=== PATIENT | male | born 1990 | race Caucasian/White ===

== ENCOUNTER → 2019-01-14 | Outpatient (CLI) | payer OTHER ==
[2019-01-14 19:54] LABS: BASO % 0.4 % (0.0-1.0); HEMATOCRIT 45.2 % (42.0-52.0); HEMOGLOBIN 15.9 g/dl (13.5-17.5); LYMPH # 1.2 10^3/uL (1.5-6.5); LYMPH % 23.9 % (24.0-44.0); MEAN CORPUSCULAR HEMOGLOBIN 31.5 pg (27.0-33.0); MEAN CORPUSCULAR HGB CONC 35.2 g/dl (32.0-36.5); MEAN CORPUSCULAR VOLUME 89.7 fl (80.0-96.0); MONO # 0.6 10^3/uL (0.0-0.8); NEUTROPHILS # 3.1 10^3/uL (1.8-7.7); NEUTROPHILS % 62.3 % (36.0-66.0); RED BLOOD COUNT 5.04 10^6/uL (4.30-6.10); WHITE BLOOD COUNT 4.9 10^3/uL (4.0-10.0)
[2019-01-14 20:13] LABS: PLATELET COUNT, AUTOMATED 75 10^3/uL (150-450)
== END ==
LOC: M WUC 12:23
PROVIDERS: ATTEND Physician Assistant
DX: K29.01 Acute gastritis with bleeding (principal)

== ENCOUNTER → 2019-01-20 | Outpatient (CLI) | payer BC, OTHER ==
[2019-01-20 11:48] LABS: H PYLORI QUALITATIVE IgG NEGATIVE (NEGATIVE)
== END ==
LOC: M LAB 09:47
PROVIDERS: ATTEND Surgery
DX: K25.0 Acute gastric ulcer with hemorrhage (principal)

== ENCOUNTER 2019-02-16 08:28 | Day surgery (SDC) | payer BC, OTHER ==
[~2019-02-16] VITALS: Ht 182.9 cm; Wt 123.8 kg
[~2019-02-16 08:28] MED LIST: NS 1,000 ML IV ONE; OMEP40CA2 PO
--- NOTE | 2019-02-16 09:11 | ROOR ---
Patient Name: Cm Serrato Procedure Date: 02/16/2019 8:56 AM Date of : 1990 Age: 28 Room: [facility] Gender: Male Note Status: Finalized Procedure: Upper GI endoscopy Indications: Follow-up of acute gastric ulcer Providers: Neftali Rebolledo DO Referring MD: Sherron Adrian DO Requesting Provider: Medicines: Propofol per Anesthesia Complications: No immediate complications. Procedure: Pre-Anesthesia Assessment: - Prior to the procedure, a History and Physical was performed, and patient medications and allergies were reviewed. The patient is competent. The risks and benefits of the procedure and the sedation options and risks were discussed with the patient. All questions were answered and informed consent was obtained. Patient identification and proposed procedure were verified by the physician, the nurse, the lumber inspector and the hazardous material technician in the endoscopy suite. Mental Status Examination: alert and oriented. Airway Examination: normal oropharyngeal airway and neck mobility. Respiratory Examination: clear to auscultation. CV Examination: normal. Prophylactic Antibiotics: The patient does not require prophylactic antibiotics. Prior Anticoagulants: The patient has taken no previous anticoagulant or antiplatelet agents. ASA Grade Assessment: II - A patient with mild systemic disease. After reviewing the risks and benefits, the patient was deemed in satisfactory condition to undergo the procedure. The anesthesia plan was to use monitored anesthesia care (MAC). Immediately prior to administration of medications, the patient was re-assessed for adequacy to receive sedatives. The heart rate, respiratory rate, oxygen saturations, blood pressure, adequacy of pulmonary ventilation, and response to care were monitored throughout the procedure. The physical status of the patient was re-assessed after the procedure. The Endoscope was introduced through the mouth, and advanced to the third part of duodenum. The upper GI endoscopy was accomplished without difficulty. The patient tolerated the procedure well. Findings: Scattered mild inflammation was found in the prepyloric region of the stomach. Biopsies were taken with a cold forceps for Helicobacter pylori testing. Estimated blood loss was minimal. One non-bleeding superficial gastric ulcer with no stigmata of bleeding was found in the prepyloric region of the stomach. The lesion was 1 mm in largest dimension. The exam was otherwise without abnormality. Impression: - Gastritis. Biopsied. - Non-bleeding gastric ulcer with no stigmata of bleeding. - The examination was otherwise normal. Recommendation: - Patient has a contact number available for emergencies. The signs and symptoms of potential delayed complications were discussed with the patient. Return to normal activities tomorrow. Written discharge instructions were provided to the patient. - Return to my office at appointment to be scheduled. - Await pathology results. Neftali Rebolledo DO 02/16/2019 9:10:44 AM Electronically signed by Neftali Rebolledo DO Number of Addenda: 0 Note Initiated On: 02/16/2019 8:56 AM Estimated Blood Loss: Estimated blood loss was minimal.
[2019-02-16 09:39] VITALS: BP 135/95
[2019-02-16] MEDS ORDERED: PROPOFOL 500 MG/50 ML VIAL As Ordered ONE (09:42)
[2019-02-16] MEDS ORDERED: LIDOCAINE 2% INJ 100 MG/5 ML SDV (FOR ANES.) As Ordered ONE (09:42)
== END 2019-02-16 09:42 | disposition home or self-care (01) ==
LOC: M OPP 08:28
PROVIDERS: ATTEND Surgery
DX: K29.70 Gastritis, unspecified, without bleeding (principal); K25.0 Acute gastric ulcer with hemorrhage; Z87.891 Personal history of nicotine dependence

== ENCOUNTER → 2021-09-02 | Outpatient (CLI) | payer BC, OTHER ==
[~2021-09-02] MED LIST changes: -NS 1,000 ML IV ONE; -OMEP40CA2 PO; +OMEP40CA4 PO
== END ==
LOC: M WUC 15:53
PROVIDERS: ATTEND Physician Assistant
DX: M25.462 Effusion, left knee (principal)

== ENCOUNTER → 2022-10-01 | Outpatient (CLI) | payer BC, OTHER | LOC: M PLAIMG 06:54 | PROVIDERS: ATTEND Orthopaedic Surgery | DX: M22.8X2 Other disorders of patella, left knee (principal); M94.262 Chondromalacia, left knee ==

== ENCOUNTER → 2025-02-08 | Outpatient (REF) | payer BC, OTHER | LOC: M SFHCWAGY 14:20 | PROVIDERS: ATTEND Internal Medicine | DX: Z82.49 Family history of ischemic heart disease and other diseases of the circulatory system (principal) ==